=== PATIENT | female | born 1945 | race Asian ===

== ENCOUNTER 2016-06-29 11:35 | Emergency (ER) | payer OTHER ==
[~2016-06-29] VITALS: Wt 60.1 kg
--- NOTE | 2016-06-29 13:13 | ERD ---
ER Documentation Chief Complaint Date/Time DATE: 06/29/16 TIME: 13:10 Chief Complaint BLOOD IN URINE X1 DAY, NO N/V/D HPI This is a 70-year-old female presenting to emergency department for hematuria and frequent urination. Patient states she has had frequent urination for the past 3 days and noticed hematuria today. Has some dysuria however not significant. Patient notices some urinary incontinence. Patient's daughter is with her and states that she has had urinary incontinence before and that was with a urinary tract infection. No fevers or chills. Denies back pain or pelvic pain. No nausea vomiting or diarrhea. ROS All systems reviewed and are negative except as per history of present illness. Medications Home Meds Active Scripts Phenazopyridine Hcl* (Pyridium*) 100 Mg Tab, 100 MG PO TID Y for URINARY PAIN, # 8 TAB Prov:NOEL POOL NP 06/29/16 Ciprofloxacin Hcl* (Ciprofloxacin Hcl*) 500 Mg Tablet, 500 MG PO BID for 3 Days , TAB Prov:NOEL POOL NP 06/29/16 Allergies Allergies: Coded Allergies: No Known Allergy (Unverified , 06/29/16) PMhx/Soc Medical and Surgical Hx: pt denies Surgical Hx History of Surgery: No Anesthesia Reaction: No Hx Neurological Disorder: No Hx Respiratory Disorders: No Hx Cardiac Disorders: Yes (htn) Hx Alcohol Use: No Hx Substance Use: No Hx Tobacco Use: No Physical Exam Vitals Vital Signs Date Time Temp Pulse Resp B/P Pulse Ox O2 Delivery O2 Flow Rate FiO2 06/29/16 11:42 97.6 74 17 164/77 97 Physical Exam Const: No acute distress, alert Head: Atraumatic Eyes: Normal Conjunctiva ENT: Normal External Ears, Nose and Mouth. Neck: Full range of motion..~ No meningismus. Resp: Clear to auscultation bilaterally Cardio: Regular rate and rhythm, no murmurs Abd: Soft, non distended. Normal bowel sounds. Mild suprapubic tenderness to palpation Skin: No petechiae or rashes Back: No midline or flank tenderness Ext: No cyanosis, or edema Neur: Awake and alert Psych: Normal Mood and Affect Results 24 hrs Laboratory Tests Test 06/29/16 13:53 Bedside Urine Blood 3+ Bedside Urine Glucose (UA) Negative Bedside Urine Ketones (LAB) Negative Bedside Urine Leukocyte Esterase (L 2+ Bedside Urine Nitrite (LAB) Negative Bedside Urine Protein (LAB) Negative Bedside Urine pH (LAB) 5.5 Procedures/MDM ED COURSE: The patient was stable throughout ED course. I kept the patient and/or family informed of laboratory and diagnostic imaging results throughout the ED course. Laboratory Urine dip 2+ leukocyte Estrace, 3+ blood MDM: 70-year-old female is once emergency department for hematuria and frequent urination. Hematuria started today and frequent urination with some urinary incontinence started 3 days ago. No fevers or chills. No back or pelvic pain. Urine is positive for urinary tract infection. Patient is calm and comfortable throughout ED visit. No vomiting. Vital signs remained stable. Diagnosis is UTI. Low suspicion for pyelonephritis or nephrolithiasis. Patient is appropriate for outpatient management will be given prescription for Cipro and Pyridium. Instructed patient to follow-up with primary care provider in the next 2-3 days for reassessment. Return to ED for any high fever, chest pain, difficulty breathing, shortness breath, wheezing, vomiting, diarrhea, abdominal pain or any new or worsening symptoms. Patient and patient's daughter verbalize understanding. All questions answered at discharge. Departure Diagnosis: Primary Impression: UTI (urinary tract infection) Urinary tract infection type: site unspecified Hematuria presence: with hematuria Qualified Code: N39.0 - Urinary tract infection with hematuria, site unspecified Condition: Stable NOEL POOL NP Jun 29, 2016 13:13
[2016-06-29 13:51] LABS: URINE BLOOD (Dip) POC 3+ (NEGATIVE)
[2016-06-29] MEDS ORDERED: PHEN-537 PO (14:13)
[2016-06-29] MEDS ORDERED: CIPR500T4 PO (14:13)
== END 2016-06-29 14:26 | disposition home or self-care (01) ==
LOC: FTE 11:35
DX: N39.0 Urinary tract infection, site not specified (principal); I10 Essential (primary) hypertension
CPT/HCPCS: 81003; Z7502; 99283